=== PATIENT | male | born 1990 | race Hispanic/Latino ===

== ENCOUNTER 2018-10-05 13:40 | Emergency (ER) | payer OTHER ==
--- NOTE | 2018-10-05 14:53 | ED PDOC ---
HPI: Headache Time Seen by Provider: 10/05/18 14:00 Chief Complaint (Nursing): Headache Chief Complaint (Provider): Headache History Per: Patient, Family History/Exam Limitations: no limitations Onset/Duration Of Symptoms: Hrs (x2-3 hours ago ), Days Current Symptoms Are (Timing): Still Present Associated Symptoms: Blurred Vision, Nausea, Vomiting Additional History Per: Family Additional Complaint(s): Omar Au is a 28 year old male with a history of migraines (last migraine was years ago), who presents to the emergency department complaining of a migraine and nausea, onset noon today, progressive throughout hte day. not thunderclap headache.. Patient states that at onset of symptoms he was unable to talk, had slurred speech, numbness in hands, and blurry vision that has since resolved. Patient also states he has had one episode of vomiting today but has denies any fever/neck stiffness/international travel. PMD: no provider Past Medical History Reviewed: Historical Data, Nursing Documentation, Vital Signs Vital Signs: Last Vital Signs Temp 97.6 F 10/05/18 14:01 Pulse 74 10/05/18 13:58 Resp 20 10/05/18 13:58 BP Pulse Ox 98 10/05/18 13:58 - Medical History PMH: Migraine - Surgical History Surgical History: No Surg Hx - Family History Family History: States: Other Other Family History: Father: brain aneurysm - Social History Current smoker - smoking cessation education provided: No Ex-Smoker (has not smoked in the last 12 months): No Alcohol: None Drugs: Denies - Home Medications Home Medications: Ambulatory Orders Medication Instructions Recorded Ibuprofen [Motrin] 600 mg PO Q6H PRN #20 tab 10/05/18 - Allergies Allergies/Adverse Reactions: Allergies Allergy/AdvReac Type Severity Reaction Status Date / Time amoxicillin Allergy Mild hive Verified 10/05/18 13:46 Review of Systems ROS Statement: Except As Marked, All Systems Reviewed And Found Negative Constitutional: Negative for: Fever Eyes: Positive for: Vision Change Gastrointestinal: Positive for: Nausea, Vomiting Neurological: Positive for: Numbness, Change in Speech, Headache Physical Exam - Reviewed Nursing Documentation Reviewed: Yes Vital Signs Reviewed: Yes - Physical Exam Appears: Positive for: Non-toxic, No Acute Distress Head Exam: Positive for: ATRAUMATIC, NORMOCEPHALIC Skin: Positive for: Normal Color, Warm, Dry Eye Exam: Positive for: Normal appearance, EOMI, PERRL ENT: Positive for: Normal ENT Inspection Neck: Positive for: Normal, Painless ROM, Supple Cardiovascular/Chest: Positive for: Regular Rate, Rhythm. Negative for: Murmur Respiratory: Positive for: Normal Breath Sounds. Negative for: Respiratory Distress Gastrointestinal/Abdominal: Positive for: Normal Exam, Soft. Negative for: Tenderness Back: Positive for: Normal Inspection, L CVA Tenderness. Negative for: R CVA Tenderness, Vertebral Tenderness Extremity: Positive for: Normal ROM. Negative for: Pedal Edema, Deformity Neurologic/Psych: Positive for: Alert, road contractor II-XII, Oriented, Gait (stable). Negative for: Motor/Sensory Deficits, Aphasia, Facial Droop - Laboratory Results Result Diagrams: 10/05/18 15:20 10/05/18 15:20 Lab Results: pt aware of lab results including elevated sugar, and need to follow up on that - ECG O2 Sat by Pulse Oximetry: 98 (RA) Pulse Ox Interpretation: Normal Medical Decision Making Medical Decision Making: Time: 14:43 Plan: headache, likely migraine, rule out intracranial process, rule out electrolyte abnormality --CT head without contrast --CMP --CBC with differential --Reglan [address] Head FINDINGS: HEMORRHAGE: No intracranial hemorrhage. BRAIN: Lee-white matter differentiation is preserved. There is no mass, mass effect or abnormal extra-axial fluid collection. There is no territorial infarction. The midline sagittal structures are normal. VENTRICLES: The ventricles are normal in size, shape and configuration. CALVARIUM: There is no calvarial fracture or extracranial soft tissue swelling. PARANASAL SINUSES: Predominantly clear. MASTOID AIR CELLS: Predominantly clear. OTHER FINDINGS: None. IMPRESSION: No acute intracranial abnormality. [address] and labs results with patient and parents at bedside. Patient reports improvement in symptoms with exception to slight nausea. will order more fluids and zofran, toradol given negative head ct. 1700 pt feels completely better and stable for dc. instructed him to follow up with a neurologist for further migraine management Scribe Attestation: Documented by Jean Monique, acting as a scribe for Anna Portillo MD. Provider Scribe Attestation: All medical record entries made by the Scribe were at my direction and personally dictated by me. I have reviewed the chart and agree that the record accurately reflects my personal performance of the history, physical exam, medical decision making, and the department course for this patient. I have also personally directed, reviewed, and agree with the discharge instructions and disposition. Disposition - Clinical Impression Clinical Impression: Migraine - Patient ED Disposition Is Patient to be Admitted: No Counseled Patient/Family Regarding: Studies Performed, Diagnosis, Need For Followup - Disposition Referrals: Terrence Montoya MD [Medical Doctor] - Disposition: Routine/Home Disposition Time: 16:14 Condition: IMPROVED Additional Instructions: follow up with a neurologist for assessment of migraines return to the ED with any worsening or concerning symptoms Prescriptions: Ibuprofen [Motrin] 600 mg PO Q6H PRN #20 tab PRN Reason: Pain, Moderate (4-7) Instructions: Migraine Headache (DC) Forms: [email or web address] ([employer])
[2018-10-05 15:31] LABS: BASO % 0.3 % (0.0-2.0); EOS % 0.2 % (0.0-4.0); HEMOGLOBIN 14.8 g/dL (12.0-18.0); LYMPH # 1.1 K/uL (1.0-4.3); LYMPH % 10.9 % (20.0-40.0); MEAN CELL VOLUME 93.2 fl (80.0-94.0); MEAN CORPUSCULAR HEMOGLOBIN 31.6 pg (27.0-31.0); MEAN CORPUSCULAR HGB CONC 33.9 g/dL (33.0-37.0); MEAN PLATELET VOLUME 7.7 fl (7.2-11.7); MONO # 0.5 K/uL (0.0-0.8); MONO % 4.5 % (0.0-10.0); NEUT # 8.6 K/uL (1.8-7.0); NEUT % 84.1 % (50.0-75.0); NRBC % 0.2 % (0.0-0.0); RBC 4.69 Mil/uL (4.40-5.90); RED CELL DISTRIBUTION WIDTH 12.4 % (11.5-14.5); WHITE BLOOD COUNT 10.2 K/uL (4.8-10.8)
[2018-10-05 15:46] LABS: ALB/GLOB RATIO 1.4 (1.0-2.1); ALBUMIN 4.5 g/dL (3.5-5.0); ALT/SGPT 38 U/L (21-72); AST/SGOT 28 U/L (17-59); BLOOD UREA NITROGEN 12 mg/dl (9-20); CALCIUM 9.9 mg/dL (8.4-10.2); GFR NON-AFRICAN AMERICAN > 60
--- NOTE | 2018-10-05 16:07 | CT ---
Date of service: 10/05/2018 PROCEDURE: CT HEAD WITHOUT CONTRAST. HISTORY: headache COMPARISON: None available. TECHNIQUE: Axial computed tomography images were obtained through the head/brain without intravenous contrast. Radiation dose: Total exam DLP = 969.69 mGy-cm. This CT exam was performed using one or more of the following dose reduction techniques: Automated exposure control, adjustment of the mA and/or kV according to patient size, and/or use of iterative reconstruction technique. FINDINGS: HEMORRHAGE: No intracranial hemorrhage. BRAIN: Lee-white matter differentiation is preserved. There is no mass, mass effect or abnormal extra-axial fluid collection. There is no territorial infarction. The midline sagittal structures are normal. VENTRICLES: The ventricles are normal in size, shape and configuration. CALVARIUM: There is no calvarial fracture or extracranial soft tissue swelling. PARANASAL SINUSES: Predominantly clear. MASTOID AIR CELLS: Predominantly clear. OTHER FINDINGS: None. IMPRESSION: No acute intracranial abnormality.
[2018-10-05] MEDS ORDERED: Sodium Chloride 0.9% 1,000 ML IV STA (16:31)
[2018-10-05 16:54] VITALS: RESP 18
[2018-10-05 19:28] VITALS: BP 110/72; PULSE 84; TEMP 98.6
[2018-10-06 10:49] VITALS: O2SAT 98
== END 2018-10-05 18:30 | disposition home or self-care (01) ==
LOC: H.ER 13:40 → EDSEX 13:40 → H.ER 18:30
DX: G43.909 Migraine, unspecified, not intractable, without status migrainosus (principal)
CPT/HCPCS: 70450; 80053; 82948; 85025; 96361; 96374; 96375; 99285; J1885; J2405; J2765; J7030